=== PATIENT | female | born 1990 | race Asian ===

== ENCOUNTER 2021-12-08 01:52 | Inpatient (IN) ==
[2021-12-08] MEDS ORDERED: OXYTOCIN 30 UNITS/500 ML BAG IV PRN ×2 (02:51→10:10)
[2021-12-08] MEDS ORDERED: LACTATED RINGER'S 1,000 ML IV PRN (02:51)
--- NOTE | 2021-12-08 02:54 | History & Physical Report ---
Date of Service December 08, 2021 Assessment & Plan (1) Supervision of normal intrauterine in primigravida: (2) Gestational diabetes: (3) SROM (spontaneous rupture of membranes): Plan: admit and plan expectant management. patient desires unmedicated labor. fetus category one. Check bs hourly for goal of 70-120. Discussed pit if >6 hours with no progress. anticipate . gbs neg. MMR pp. History of Present Illness Chief Complaint: rom Primary Care Provider: Steph Buck MD Patient is a 31yof, [id number] at 39 weeks who presents to labor and delivery noting that she awoke in a puddle of fluid at 12:30. continues to leak some clear fluid. Notes some mild contractions. +fm. BEKAH at 33 weeks. Hx of HSV with last outbreak about 10 years ago--no sx. diagnosed with gdm by 2 hr and has been controlled on diet, last ac at 36 weeks 71%. and Delivery Plans BEKAH @ 33wks. Hx of Genital Herpes *Valtrex @ 36wks. Rubella nonimmune needs ppmmr Gestational Diabetes *Monthly AC US's OB Labs: Hemoglobin 12.3 g/dL (12.0-16.0) 10/29/21 Hematocrit 36.7 % (37-47) L 10/29/21 OB Optional Labs: No Data to Display Labs Reviewed: Initial OB Labs Blood Type & RH A positive Antibody Screen negative HCT/HGB 40.2/13.7 Platelets 294 Hep C IgG 13yrs+ Old negative Pap Test negative cotest Chlamydia negative Gonorrhea negative Rubella non immune RPR non reactive Urine Culture/Screen no growth HBsAg negative HIV negative MCV 92.4 declined genetics Allergies Allergy/AdvReac Type Severity Reaction Status Date / Time house dust mite Allergy Sneezing Verified 12/08/21 02:13 No Known Drug Allergies Allergy Unknown Verified 12/08/21 02:13 Home Medications Medication Instructions Recorded Confirmed Type docosahexaenoic acid 200 mg 1 mg PO DAILY 10/28/21 12/08/21 History capsule ( DHA) prenat.vits,sierra,ywo-dwlm-lqral 1 tab PO DAILY 10/28/21 12/08/21 History valacyclovir 500 mg tablet 500 mg PO BID #60 tab 11/12/21 12/08/21 Rx (Valtrex) Patient History Medical History (Updated 12/08/21 @ 02:59 by Enriqueta Pedroza MD, FACOG) Herpes genitalia currently taking valtrex bid Surgical History 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), normal paps since S/P shoulder surgery Family History Grandmother (Maternal) Breast cancer Grandfather (Paternal) Cancer brain cancer Mother Diabetes Father Diabetes Grandfather (Maternal) Myocardial infarction Denies family history of Malignant hypothermia due to anesthesia Social History (Updated 10/28/21 @ 14:20 by Moriah Neal) Smoking Status: Former smoker Tobacco Type: Cigarettes Cigarettes Per Day: 2 days; Hx Alcohol Use: No Hx Substance Use: No Preferred Language: [place]an Communication Ability: Effective Gastrointestinal Technician Required: No Beliefs That Will Affect Care: None marital status: marital status details: Alex (32) [phone] Current Living Situation: Spouse Current Living Situation Comment: house with current occupational status: employed 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 Date GA wks Lbr Lgth wt Sex Type del Anes Place Del Prov ? 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 History hx of HSV many years ago Physical Exam Constitutional: WD/WN, vitals as above Gastrointestinal (Abdomen): soft, gravid, nt Psychiatric: A+Ox3, euthymic affect Genitourinary: cx--80/-2 toco--irregular efm--150s with mod variability, accels to 170s, no decels Results & Data ([facility]) Vital Signs (Past 12 Hours) Vital Signs Temp Pulse Resp BP 12/08/21 02:14 36.8 C 18 12/08/21 02:11 36.8 C 74 18 112/78 Code Status & VTE Plan VTE Prophylaxis Plan VTE Prophylaxis will be ordered: No Coding Level of Care Code None Diagnoses Supervision of normal intrauterine in primigravida Z34.00 Gestational diabetes O24.419 SROM (spontaneous rupture of membranes)
[2021-12-08 03:37] LABS: Hematocrit (blood only) 36.8 % (37-47); Hemoglobin 12.6 g/dL (12.0-16.0); Mean Corpuscular Hemoglobin 30.8 pg (25-34); Mean Corpuscular Hgb Conc 34.2 g/dL (32-36); Mean Platelet Volume 10.2 fL (7.4-10.4); Platelet Count 319 K/uL (130-400); RDW Coefficient of Variation 12.9 % (11.5-14.5); RDW Standard Deviation 41.9 fL (36.4-46.3); Red Blood Count 4.09 M/uL (4.2-5.4); White Blood Count 12.83 K/uL (4.8-10.8)
--- NOTE | 2021-12-08 06:55 | Labor Progress Brief Note ---
Date of Service December 08, 2021 Subjective Breathing through contractions with multiple position changes. Assessment & Plan (1) SROM (spontaneous rupture of membranes): Plan: Making good change. Continue expectant management. Declines epidural at this point. Doing really well. Admission and Anticipated Discharge Date Admission Date: December 08, 2021 Physical Exam Physical Exam: cx--6/100/-2 toco--q3-5 efm--category one Results & Data ([facility]) Vital Signs (Past 12 Hours) Vital Signs Temp Pulse Resp BP 12/08/21 06:14 79 123/83 12/08/21 06:05 36.8 C 18 12/08/21 05:03 20 12/08/21 04:00 36.8 C 12/08/21 03:30 18 12/08/21 02:14 36.8 C 18 12/08/21 02:11 36.8 C 74 18 112/78 Coding Level of Care Code None Diagnoses SROM (spontaneous rupture of membranes)
[2021-12-08] MEDS ORDERED: ONDANSETRON INJ 2 MG/ML 2 ML VIAL IV PRN (08:27)
[2021-12-08] MEDS ORDERED: LIDOCAINE 1% LOCAL 20 ML VIAL ONE (09:40)
[2021-12-08] MEDS ORDERED: IBUPROFEN 600 MG TAB PO ONE (10:06)
[2021-12-08] MEDS ORDERED: ACETAMINOPHEN 325 MG TAB PO PRN (10:10)
[2021-12-08] MEDS ORDERED: DIPHTHERIA/TETANUS/PERTUSSIS 0.5 ML SYR/VIAL IM ONE (10:10)
[2021-12-08] MEDS ORDERED: bisacodyL 10 MG SUPP PR PRN (10:10)
[2021-12-08] MEDS ORDERED: BENZOCAINE 20% AER SPR 82.5 GM CAN EXT PRN (10:10)
[2021-12-08] MEDS ORDERED: HYDROCORTISONE ACETATE 25 MG SUPP PR PRN (10:10)
--- NOTE | 2021-12-08 10:28 | Delivery Summary ---
Vaginal Delivery Summary Date of Service December 08, 2021 Vaginal Delivery Summary and 1st Degree LAC Patient is a 1 P0 female EDC 12/15/2021 who presented with spontaneous rupture membranes at approximately midnight for clear fluid. She desired an unmedicated . Spontaneously began to contract, and progressed to full dilation. She had the urge to push and did so effectively over intact perineum for delivery of a viable female . After the head was delivered the rest the delivered easily and was placed on the mother's abdomen for further attention and drying. The infant was vigorous and moving all 4 limbs. After 1 minute the cord was clamped and cut. The placenta was then expressed intact with a three-vessel cord. There was a first-degree perineal laceration which was repaired with 3-0 chromic in the usual fashion. 1% lidocaine approximately 20 cc was used to anesthetize the area prior to doing the repair. Estimated blood loss was 250 cc. Mother and were doing well after delivery. MNP Vaginal Delivery Charge Delivery Type Details: and 1st Degree LAC
[2021-12-08] MEDS: IBUPROFEN 600 MG TAB PO PRN ×2 (15:42→22:11)
[2021-12-08] MEDS: DOCUSATE SODIUM 100 MG CAP PO SCH (22:09)
--- NOTE | 2021-12-09 06:23 | Obstetrical Progress Note ---
Date of Service <Wily Blood DO - Last Filed: 12/09/21 07:19> December 09, 2021 Assessment & Plan <Wily Blood DO - Last Filed: 12/09/21 07:19> (1) Encounter for care and examination after delivery: 31 yo post day 1 from vaginal delivery, doing well. -Continue routine post care. -vital signs reviewed and WNL. (Tmax 37) -Blood type A+, GBS negative, Rubella non-immune -Encourage ambulation, monitor and control pain with Motrin, tylenol PRN, resume regular diet, monitor lochia. -encourage breast feeding. -Discussed discharge with patient in case she would like to go later today but encouraged staying until tomorrow b/c first time mother. <Amanda Phelps MD, FACOG - Last Filed: 12/09/21 08:49> (1) Encounter for care and examination after delivery: Subjective <Wily Blood DO - Last Filed: 12/09/21 07:19> Ambulation: ambulating normally Voiding: no voiding problems Passing Gas:: Yes Diet Tolerance:: regular diet Lochia:: Small Feeding Type:: breast feeding Current Pain Level(1-10): 0 Review of Systems Denies fever, chills, sweats Denies shortness of breath, difficulty breathing, chest pain, palpitations, chest pressure. Denies breast pain. Denies dysuria. Denies headache or changes in vision Physical Exam <Wily Blood DO - Last Filed: 12/09/21 07:19> General: Alert, oriented. No acute distress. Cardiac: Regular rate and rhythm, no murmurs/rubs/gallops. Respiratory: Clear to auscultation bilaterally a/p, no wheezes/rales/rhonchi. No increased work of breathing. Symmetrical chest rise. No respiratory distress. Abdomen: Soft, nontender, nondistended. Bowel sounds present. Uterus: Uterine fundus firm, palpable 2 cm below umbilicus. Lower Extremities: No lower extremity edema or swelling. No deep calf pain. Cira's negative bilaterally Results & Data ([facility]) <Wily Blood DO - Last Filed: 12/09/21 07:19> Vital Signs (Past 12 Hours) Vital Signs Temp Pulse Resp BP Pulse Ox 12/09/21 04:30 36.5 C 80 20 109/69 98 12/08/21 23:20 36.6 C 80 18 111/70 96 12/08/21 19:55 36.5 C 79 20 107/66 97 <Amanda Phelps MD, FACOG - Last Filed: 12/09/21 08:49> Co-Signing Physician Notes Resident Physician Supervision Note: I was present with Dr. Blood during the history and exam. I discussed the case with the resident and agree with the findings and plan as documented in the note. Any exceptions or clarifications are listed here: [None] Documented By: Amanda Phelps MD, FACOG Resident Activity Tracking <Wily Blood DO - Last Filed: 12/09/21 07:19> Resident Involvement: Resident Care Provided Care Provided: OB Delivery
[2021-12-09 07:39] LABS: Hematocrit (blood only) 32.4 % (37-47); Hemoglobin 11.2 g/dL (12.0-16.0); Mean Corpuscular Hemoglobin 31.3 pg (25-34); Mean Corpuscular Hgb Conc 34.6 g/dL (32-36); Mean Corpuscular Volume 90.5 fL (80-100); Mean Platelet Volume 10.3 fL (7.4-10.4); Platelet Count 265 K/uL (130-400); RDW Standard Deviation 42.4 fL (36.4-46.3); Red Blood Count 3.58 M/uL (4.2-5.4)
[2021-12-09] MEDS ORDERED: PRENATAL VITAMIN 1 TAB PO SCH (08:00)
[2021-12-09] MEDS: DOCUSATE SODIUM 100 MG CAP PO SCH (08:49)
[2021-12-09] MEDS ORDERED: bisacodyL 5 MG TABEC PO SCH (20:00)
== END 2021-12-09 13:09 | disposition home or self-care (01) | DRG 807 ==
LOC: OPB 01:52 → 4S1 01:57 → 4E2 14:39